=== PATIENT | female | born 1995 | race Caucasian/White ===

== ENCOUNTER 2023-12-22 19:18 | Emergency (ER) | payer OTHER ==
[~2023-12-22] VITALS: Ht 157.5 cm; Wt 47.2 kg
[2023-12-22 19:31] VITALS: BP_SYST 136; PULSE 106; RESP 18; TEMP 98.7; O2SAT 98
[2023-12-22 21:40] VITALS: BP_SYST 132; PULSE 99; RESP 18; TEMP 98.6; O2SAT 98
== END 2023-12-22 21:40 | disposition home or self-care (01) ==
LOC: SED 19:18
DX: R07.89 Other chest pain (principal); R42 Dizziness and giddiness; Z88.1 Allergy status to other antibiotic agents
CPT/HCPCS: 71045; 93005; 99283